=== PATIENT | female | born 1955 | race Caucasian/White ===

== ENCOUNTER 2018-08-06 16:07 | Inpatient (IN) | payer SELFPAY ==
[~2018-08-06] VITALS: Ht 153 cm; Wt 61.2 kg
[2018-08-06] MEDS ORDERED: ONDANSETRON HCL 4MG/2ML INJ IV STA (17:25)
[2018-08-06] MEDS ORDERED: MORPHINE SULFATE 4 MG/ML CPJ (NOT FOR IM USE) IV STA (17:25)
[2018-08-06] MEDS ORDERED: SODIUM CHLORIDE 0.9% 1000ML BAG (SEPSIS BOLUS) IV ONE (17:30)
[2018-08-06] MEDS ORDERED: PIPERACILLIN/TAZ 3.375G PREMIX 50 ML IV ONE (17:30)
[2018-08-06] MEDS ORDERED: VANCOMYCIN 1 G PREMIX 200 ML IV ONE (17:30)
[2018-08-06 18:05] LABS: CLARITY URINE CLEAR (CLEAR); COLOR URINE DARK YELLOW (YELLOW); KETONES URINE NEGATIVE (NEGATIVE); LEUKOCYTE ESTERASE URINE NEGATIVE (NEGATIVE); NITRITE URINE NEGATIVE (NEGATIVE); OCCULT BLOOD URINE TRACE (NEGATIVE); PH URINE 6.5 (4.5-8.0); PROTEIN URINE 3+ (NEGATIVE); SPECIFIC GRAVITY URINE 1.026 (1.005-1.030)
[2018-08-06 18:19] LABS: BASOPHILS % 0.8 % (0.0-2.0); EOSINOPHILS % 0.2 % (0.0-5.0); HEMATOCRIT. 51.8 % (36.0-48.0); HEMOGLOBIN. 17.4 g/dL (12.0-16.0); LYMPHOCYTES % 16.5 % (20.0-50.0); MEAN CORPUSCULAR HEMOGLOBIN 30.1 pg (28.0-32.0); MEAN CORPUSCULAR VOLUME 89.4 fL (81.0-99.0); MEAN PLATELET VOLUME 8.7 fl (7.4-10.4); MONOCYTES % 8.5 % (2.0-8.0); PLATELET 209 x1000/uL (130-400); RED BLOOD CELL COUNT 5.79 mill/uL (4.2-5.4); RED CELL DISTRIBUTION WIDTH 13.5 % (11.6-14.6)
[2018-08-06 18:23] LABS: CHLORIDE 94 mEq/L (98-107); INR 1.2
[2018-08-06] MEDS ORDERED: MORPHINE SULFATE 4 MG/ML CPJ (NOT FOR IM USE) IV ONE (20:30)
[2018-08-06] MEDS ORDERED: ONDANSETRON HCL 4MG/2ML INJ IV PRN (22:00)
[2018-08-06] MEDS ORDERED: ACETAMINOPHEN 650MG SUPP PR PRN (22:00)
[2018-08-06] MEDS ORDERED: IPRATROPIUM/ALBUTEROL 0.5-3(2.5)MG/3ML NEB INH PRN (22:00)
[2018-08-06] MEDS ORDERED: PIPERACILLIN/TAZ 3.375G PREMIX 50 ML IV SCH (22:00)
[2018-08-06] MEDS ORDERED: ACETAMINOPHEN 325MG TABLET PO PRN (22:00)
[2018-08-06] MEDS ORDERED: MAGNESIUM/ALUMINUM HYDROXIDE/SIMETHICONE 30ML UDC PO PRN (22:00)
[2018-08-06] MEDS ORDERED: DOCUSATE SODIUM 100MG CAPSULE PO PRN (22:00)
[2018-08-06] MEDS ORDERED: DIPHENHYDRAMINE 50MG/ML VIAL IV PRN (22:00)
[2018-08-06] MEDS ORDERED: GUAIFENESIN 200MG/10ML SUGAR FREE UDC PO PRN (22:00)
[2018-08-06] MEDS ORDERED: NA PHOS,M-B/NA PHOS,DI-BA ENEMA 118ML PR PRN (22:00)
[2018-08-06] MEDS ORDERED: VANCOMYCIN 1 G PREMIX 200 ML IV SCH (22:00)
[2018-08-06] MEDS ORDERED: ACETAMINOPHEN 650MG/20.3ML UDC GT PRN (22:00)
[2018-08-06] MEDS ORDERED: DEXTROSE 50% WATER 50ML SYRINGE IV PRN (22:15)
[2018-08-06] MEDS ORDERED: INSULIN LISPRO 100 UNITS/ML SUBCUT NR (22:45)
[2018-08-06] MEDS: CLONIDINE 0.1MG TABLET PO PRN (22:51)
[2018-08-07] VITALS: BP 158/82
[2018-08-07] MEDS: PIPERACILLIN/TAZ 3.375G PREMIX 50 ML IV SCH ×3 (02:01→17:47)
[2018-08-07 04:00] VITALS: BP 160/88
[2018-08-07] MEDS: VANCOMYCIN 750 MG PREMIX 150 ML IV SCH ×2 (04:30→19:57)
[2018-08-07] MEDS: BLOOD SUGAR DIAGNOSTIC STRIP TEST SCH ×4 (06:37→20:06)
[2018-08-07 06:48] LABS: BASOPHILS % 0.3 % (0.0-2.0); EOSINOPHILS % 0.3 % (0.0-5.0); HEMATOCRIT. 46.2 % (36.0-48.0); HEMOGLOBIN. 15.5 g/dL (12.0-16.0); MEAN CORPUSCULAR HEMOGLOBIN 30.3 pg (28.0-32.0); MEAN CORPUSCULAR VOLUME 90.5 fL (81.0-99.0); MONOCYTES % 8.1 % (2.0-8.0); NEUTROPHILS % 76.3 % (40.0-76.0); PLATELET 165 x1000/uL (130-400); RED BLOOD CELL COUNT 5.11 mill/uL (4.2-5.4); RED CELL DISTRIBUTION WIDTH 13.5 % (11.6-14.6)
[2018-08-07 06:51] LABS: CHLORIDE 98 mEq/L (98-107)
[2018-08-07 07:09] LABS: LDL CHOLESTEROL 90 mg/dL (5-100)
[2018-08-07 07:11] LABS: HDL CHOLESTEROL 26 mg/dL (40-59)
[2018-08-07 08:23] VITALS: BP 133/76
[2018-08-07] MEDS: INSULIN LISPRO 100 UNITS/ML SUBCUT SCH ×4 (08:32→21:05)
[2018-08-07] MEDS: MORPHINE SULFATE 2 MG/ML CPJ (NOT FOR IM USE) IV PRN (09:15)
[2018-08-07] MEDS: ENOXAPARIN 40MG/0.4ML SYR SUBCUT SCH (09:16)
[2018-08-07 10:28] LABS: *BARBITURATES SCREEN URINE NEGATIVE (NEGATIVE); *BENZODIAZEPINES SCREEN URINE NEGATIVE (NEGATIVE); *COCAINE SCREEN URINE NEGATIVE (NEGATIVE); CANNABINOID URINE SCREEN NEGATIVE (NEGATIVE); METHADONE URINE SCREEN NEGATIVE (NEGATIVE); OPIATES URINE SCREEN NEGATIVE (NEGATIVE); PHENCYCLIDINE URINE SCREEN NEGATIVE (NEGATIVE)
[2018-08-07 10:35] LABS: *AMPHETAMINES SCREEN URINE NEGATIVE (NEGATIVE)
[2018-08-07 11:43] VITALS: BP 129/78
[2018-08-07] MEDS ORDERED: LORAZEPAM 2MG/ML CPJ IV NR (11:45)
[2018-08-07] MEDS ORDERED: IOHEXOL-350 100 ML BOTTLE ONE (14:14)
[2018-08-07 14:49] LABS: *BARBITURATES SCREEN URINE NEGATIVE (NEGATIVE); *BENZODIAZEPINES SCREEN URINE NEGATIVE (NEGATIVE)
[2018-08-07 14:50] LABS: *AMPHETAMINES SCREEN URINE NEGATIVE (NEGATIVE); *COCAINE SCREEN URINE NEGATIVE (NEGATIVE); CANNABINOID URINE SCREEN NEGATIVE (NEGATIVE); METHADONE URINE SCREEN NEGATIVE (NEGATIVE); OPIATES URINE SCREEN PRESUMTIVE POSITIVE (NEGATIVE); PHENCYCLIDINE URINE SCREEN NEGATIVE (NEGATIVE)
[2018-08-07] MEDS: SODIUM CHLORIDE 0.9% INJ 3ML FLUSH IVF SCH (14:56)
[2018-08-07 16:07] VITALS: BP 156/89
[2018-08-07 20:00] VITALS: BP 149/83
[2018-08-07] MEDS: HYDROCODONE/ACETAMINOPHEN 5/325MG TABLET PO PRN (21:03)
[2018-08-07] MEDS ORDERED: FUROSEMIDE 40MG/4ML VIAL IVP NR (22:00)
[2018-08-08] VITALS: BP 116/68
[2018-08-08] MEDS: PIPERACILLIN/TAZ 3.375G PREMIX 50 ML IV SCH ×3 (01:34→19:09)
[2018-08-08] MEDS: MORPHINE SULFATE 2 MG/ML CPJ (NOT FOR IM USE) IV PRN ×3 (03:28→19:09)
[2018-08-08 04:00] VITALS: BP 148/83
[2018-08-08] MEDS: VANCOMYCIN 750 MG PREMIX 150 ML IV SCH ×3 (05:57→23:23)
[2018-08-08] MEDS: BLOOD SUGAR DIAGNOSTIC STRIP TEST SCH ×4 (06:26→21:00)
[2018-08-08 07:45] LABS: CHLORIDE 94 mEq/L (98-107)
[2018-08-08 08:00] VITALS: BP 141/80
[2018-08-08] MEDS: ENOXAPARIN 40MG/0.4ML SYR SUBCUT SCH (08:37)
[2018-08-08] MEDS: INSULIN LISPRO 100 UNITS/ML SUBCUT SCH ×4 (08:50→21:00)
[2018-08-08] MEDS: QUETIAPINE FUMARATE 25MG TABLET PO SCH (11:22)
[2018-08-08] MEDS: HYDROCODONE/ACETAMINOPHEN 5/325MG TABLET PO PRN (11:32)
[2018-08-08] MEDS: CLONIDINE 0.1MG TABLET PO PRN (11:40)
[2018-08-08 12:00] VITALS: BP 170/94
[2018-08-08 16:00] VITALS: BP 155/86
[2018-08-08] MEDS: SODIUM CHLORIDE 0.9% INJ 3ML FLUSH IVF SCH ×2 (17:19→22:00)
[2018-08-08 20:00] VITALS: BP 147/84
[2018-08-09] VITALS: BP 122/86
[2018-08-09] MEDS: PIPERACILLIN/TAZ 3.375G PREMIX 50 ML IV SCH ×3 (02:04→18:08)
[2018-08-09 04:00] VITALS: BP 161/77
[2018-08-09] MEDS: SODIUM CHLORIDE 0.9% INJ 3ML FLUSH IVF SCH ×3 (06:00→22:50)
[2018-08-09] MEDS: VANCOMYCIN 750 MG PREMIX 150 ML IV SCH ×3 (06:03→22:51)
[2018-08-09] MEDS: BLOOD SUGAR DIAGNOSTIC STRIP TEST SCH ×3 (07:50→17:46)
[2018-08-09] MEDS: INSULIN LISPRO 100 UNITS/ML SUBCUT SCH ×4 (07:50→22:49)
[2018-08-09 08:00] VITALS: BP 154/82
[2018-08-09] MEDS: QUETIAPINE FUMARATE 25MG TABLET PO SCH (09:28)
[2018-08-09] MEDS: CLONIDINE 0.1MG TABLET PO PRN ×2 (09:29→22:50)
[2018-08-09 12:00] VITALS: BP 158/97
[2018-08-09 12:36] LABS: CHLORIDE 98 mEq/L (98-107)
[2018-08-09 12:39] LABS: BASOPHILS % 0.3 % (0.0-2.0); EOSINOPHILS % 0.9 % (0.0-5.0); HEMATOCRIT. 45.7 % (36.0-48.0); HEMOGLOBIN. 15.4 g/dL (12.0-16.0); LYMPHOCYTES % 13.9 % (20.0-50.0); MEAN CORPUSCULAR HEMOGLOBIN 30.2 pg (28.0-32.0); MEAN CORPUSCULAR VOLUME 89.6 fL (81.0-99.0); MEAN PLATELET VOLUME 8.6 fl (7.4-10.4); MONOCYTES % 9.4 % (2.0-8.0); NEUTROPHILS % 75.5 % (40.0-76.0); PLATELET 170 x1000/uL (130-400); RED CELL DISTRIBUTION WIDTH 13.3 % (11.6-14.6)
[2018-08-09 20:00] VITALS: BP 178/102
[2018-08-10] VITALS (7 sets, daily range): BP systolic 146–187; BP diastolic 81–113
[2018-08-10] MEDS: PIPERACILLIN/TAZ 3.375G PREMIX 50 ML IV SCH ×2 (03:08→10:00)
[2018-08-10] MEDS: SODIUM CHLORIDE 0.9% INJ 3ML FLUSH IVF SCH ×2 (05:57→14:00)
[2018-08-10] MEDS: VANCOMYCIN 750 MG PREMIX 150 ML IV SCH ×2 (06:00→15:00)
[2018-08-10] MEDS: CLONIDINE 0.1MG TABLET PO PRN (06:19)
[2018-08-10] MEDS: BLOOD SUGAR DIAGNOSTIC STRIP TEST SCH ×3 (07:20→17:20)
[2018-08-10] MEDS: QUETIAPINE FUMARATE 25MG TABLET PO SCH (09:49)
[2018-08-10] MEDS: INSULIN LISPRO 100 UNITS/ML SUBCUT SCH ×3 (09:51→17:50)
[2018-08-10] MEDS ORDERED: IOHEXOL-350 100 ML BOTTLE ONE (15:26)
== END 2018-08-10 17:55 | disposition home or self-care (01) | DRG 197 ==
LOC: ER 16:07 → 6EST 21:02 → EDBEDREQ 21:04 → EDBEDREQSVC 21:04 → EDBEDREQTM 21:04 → ENRESERV 22:13
PROVIDERS: ADMIT Family Medicine; ATTEND Family Medicine
DX: E11.52 Type 2 diabetes mellitus with diabetic peripheral angiopathy with gangrene (principal); E43 Unspecified severe protein-calorie malnutrition; I96 Gangrene, not elsewhere classified; E11.42 Type 2 diabetes mellitus with diabetic polyneuropathy; L03.031 Cellulitis of right toe; E11.9 Type 2 diabetes mellitus without complications; E78.00 Pure hypercholesterolemia, unspecified; I10 Essential (primary) hypertension; F17.200 Nicotine dependence, unspecified, uncomplicated; F41.9 Anxiety disorder, unspecified; J44.9 Chronic obstructive pulmonary disease, unspecified; E78.5 Hyperlipidemia, unspecified; L03.032 Cellulitis of left toe; N39.0 Urinary tract infection, site not specified; R74.0 Nonspecific elevation of levels of transaminase and lactic acid dehydrogenase [LDH]; Z91.19 Patient's noncompliance with other medical treatment and regimen; Z79.2 Long term (current) use of antibiotics; Z68.26 Body mass index [BMI] 26.0-26.9, adult; Z79.899 Other long term (current) drug therapy; Z71.6 Tobacco abuse counseling; Z91.14 Patient's other noncompliance with medication regimen
CPT/HCPCS: 36415; 71045; 73630; 75635; 80048; 80061; 80202; 80305; 82962; 83036; 83605; 84145; 84484; 93005; 93923; 96365; 96366; 96375; 96376; 99291; 99406; C1893; J1650; J1815; J1940; J2060; J2270; J2405; J2543; J3370; J7030; J7040; Q9967

== ENCOUNTER 2018-08-28 11:28 | Inpatient (IN) | payer MEDICARE, MEDICAID ==
[~2018-08-28] VITALS: Ht 154.9 cm; Wt 55.3 kg
[2018-08-28] MEDS ORDERED: MORPHINE SULFATE 4 MG/ML CPJ (NOT FOR IM USE) IV STA (11:37)
[2018-08-28] MEDS ORDERED: ONDANSETRON HCL 4MG/2ML INJ IV STA (11:37)
[2018-08-28] MEDS ORDERED: VANCOMYCIN 1 G PREMIX 200 ML IV ONE (11:45)
[2018-08-28] MEDS ORDERED: SODIUM CHLORIDE 0.9% 1000ML BAG (SEPSIS BOLUS) IV ONE (11:45)
[2018-08-28] MEDS ORDERED: PIPERACILLIN/TAZ 3.375G PREMIX 50 ML IV ONE (11:45)
[2018-08-28 12:40] LABS: BASOPHILS % 0.6 % (0.0-2.0); EOSINOPHILS % 0.4 % (0.0-5.0); HEMATOCRIT. 48.5 % (36.0-48.0); HEMOGLOBIN. 16.3 g/dL (12.0-16.0); LYMPHOCYTES % 19.7 % (20.0-50.0); MEAN CORPUSCULAR HEMOGLOBIN 30.1 pg (28.0-32.0); MEAN CORPUSCULAR VOLUME 89.2 fL (81.0-99.0); MEAN PLATELET VOLUME 8.9 fl (7.4-10.4); MONOCYTES % 7.5 % (2.0-8.0); NEUTROPHILS % 71.8 % (40.0-76.0); PLATELET 242 x1000/uL (130-400); RED BLOOD CELL COUNT 5.43 mill/uL (4.2-5.4); RED CELL DISTRIBUTION WIDTH 14.1 % (11.6-14.6)
[2018-08-28 12:48] LABS: CHLORIDE 102 mEq/L (98-107)
[2018-08-28 12:49] LABS: INR 1.1; PARTIAL THROMBOPLASTIN TIME 26.1 sec (23.4-31.0); PROTHROMBIN TIME 10.9 sec (9.6-11.0)
[2018-08-28] MEDS ORDERED: DEXT 5%/0.45% NACL KCL 20MEQ/L 1,000 ML IV ONE (13:04)
[2018-08-28] MEDS ORDERED: DEXTROSE 50% WATER 50ML SYRINGE IV ONE (13:15)
[2018-08-28] MEDS ORDERED: HYDROCODONE/ACETAMINOPHEN 5/325MG TABLET PO PRN (14:00)
[2018-08-28] MEDS ORDERED: DEXTROSE 50% WATER 50ML SYRINGE IV PRN (14:00)
[2018-08-28] MEDS ORDERED: ONDANSETRON HCL 4MG/2ML INJ IV PRN (14:00)
[2018-08-28] MEDS ORDERED: ACETAMINOPHEN 325MG TABLET PO PRN (14:00)
[2018-08-28] MEDS ORDERED: FUROSEMIDE 40MG/4ML VIAL IVP NR (14:00)
[2018-08-28] MEDS: ENOXAPARIN 40MG/0.4ML SYR SUBCUT SCH (15:54)
[2018-08-28 16:00] VITALS: BP 142/88
[2018-08-28] MEDS ORDERED: LEVOFLOXACIN 500MG PREMIX 100 ML IV SCH (16:00)
[2018-08-28] MEDS: BLOOD SUGAR DIAGNOSTIC STRIP TEST SCH ×2 (16:24→20:34)
[2018-08-28] MEDS ORDERED: VANCOMYCIN 1 G PREMIX 200 ML IV NR (16:30)
[2018-08-28] MEDS: INSULIN LISPRO 100 UNITS/ML SUBCUT SCH ×2 (17:50→20:45)
[2018-08-28 17:55] VITALS: BP 142/88
[2018-08-28 19:15] VITALS: BP 123/66
[2018-08-28] MEDS: AMLODIPINE 5MG TABLET PO SCH (20:45)
[2018-08-28] MEDS: VANCOMYCIN 750 MG PREMIX 150 ML IV SCH (21:18)
[2018-08-28] MEDS: MORPHINE SULFATE 2 MG/ML CPJ (NOT FOR IM USE) IV PRN (22:54)
[2018-08-29] VITALS: BP 124/69
[2018-08-29 04:00] VITALS: BP 126/81
[2018-08-29] MEDS: VANCOMYCIN 750 MG PREMIX 150 ML IV SCH ×2 (05:06→14:28)
[2018-08-29] MEDS: BLOOD SUGAR DIAGNOSTIC STRIP TEST SCH ×4 (06:26→20:59)
[2018-08-29 07:32] LABS: BASOPHILS % 0.6 % (0.0-2.0); EOSINOPHILS % 1.7 % (0.0-5.0); HEMATOCRIT. 45.4 % (36.0-48.0); HEMOGLOBIN. 15.2 g/dL (12.0-16.0); LYMPHOCYTES % 21.5 % (20.0-50.0); MEAN CORPUSCULAR HEMOGLOBIN 29.9 pg (28.0-32.0); MEAN CORPUSCULAR VOLUME 89.4 fL (81.0-99.0); MEAN PLATELET VOLUME 8.9 fl (7.4-10.4); MONOCYTES % 9.2 % (2.0-8.0); PLATELET 191 x1000/uL (130-400); RED BLOOD CELL COUNT 5.08 mill/uL (4.2-5.4); RED CELL DISTRIBUTION WIDTH 14.3 % (11.6-14.6)
[2018-08-29 07:59] VITALS: BP 145/85
[2018-08-29] MEDS: MORPHINE SULFATE 2 MG/ML CPJ (NOT FOR IM USE) IV PRN ×4 (08:22→22:43)
[2018-08-29] MEDS: AMLODIPINE 5MG TABLET PO SCH ×2 (08:22→20:53)
[2018-08-29] MEDS: INSULIN LISPRO 100 UNITS/ML SUBCUT SCH ×4 (08:23→21:00)
[2018-08-29 08:38] LABS: CHLORIDE 98 mEq/L (98-107)
[2018-08-29 11:39] VITALS: BP 127/81
[2018-08-29 15:15] VITALS: BP 120/71
[2018-08-29] MEDS: ENOXAPARIN 40MG/0.4ML SYR SUBCUT SCH (15:29)
[2018-08-29] MEDS: LEVOFLOXACIN 500MG PREMIX 100 ML IV SCH (16:32)
[2018-08-29 20:00] VITALS: BP 122/70
[2018-08-29] MEDS: INSULIN GLARGINE UD 100 UNITS/ML SYR SUBCUT SCH (22:00)
[2018-08-29] MEDS: VANCOMYCIN 1 G PREMIX 200 ML IV SCH (22:42)
[2018-08-30] VITALS (11 sets, daily range): BP systolic 109–144; BP diastolic 60–89
[2018-08-30] MEDS: VANCOMYCIN 1 G PREMIX 200 ML IV SCH ×3 (06:11→22:00)
[2018-08-30] MEDS: BLOOD SUGAR DIAGNOSTIC STRIP TEST SCH ×4 (06:24→20:53)
[2018-08-30] MEDS: INSULIN LISPRO 100 UNITS/ML SUBCUT SCH ×4 (07:50→20:52)
[2018-08-30] MEDS ORDERED: HEPARIN SODIUM 1,000 UNIT/1ML VIAL IV ONE (08:48)
[2018-08-30] MEDS: AMLODIPINE 5MG TABLET PO SCH ×2 (08:51→20:56)
[2018-08-30 09:14] LABS: BASOPHILS % 0.4 % (0.0-2.0); EOSINOPHILS % 1.3 % (0.0-5.0); HEMATOCRIT. 45.3 % (36.0-48.0); HEMOGLOBIN. 14.9 g/dL (12.0-16.0); LYMPHOCYTES % 19.8 % (20.0-50.0); MEAN CORPUSCULAR HEMOGLOBIN 29.9 pg (28.0-32.0); MEAN CORPUSCULAR VOLUME 90.7 fL (81.0-99.0); MEAN PLATELET VOLUME 8.7 fl (7.4-10.4); MONOCYTES % 8.3 % (2.0-8.0); NEUTROPHILS % 70.2 % (40.0-76.0); PLATELET 199 x1000/uL (130-400); RED CELL DISTRIBUTION WIDTH 14.3 % (11.6-14.6)
[2018-08-30 09:22] LABS: CHLORIDE 96 mEq/L (98-107)
[2018-08-30] MEDS: INSULIN GLARGINE UD 100 UNITS/ML SYR SUBCUT SCH (10:43)
[2018-08-30] MEDS ORDERED: LIDOCAINE HCL 1% 20ML VIAL (Pyxis) INJ ONE (11:38)
[2018-08-30] MEDS ORDERED: IOHEXOL-300 100 ML BOTTLE ONE ×2 (11:38→12:37)
[2018-08-30] MEDS ORDERED: MIDAZOLAM HCL 2 MG/2 ML VIAL ONE ×2 (11:52→12:31)
[2018-08-30] MEDS ORDERED: FENTANYL CITRATE/PF 50MCG/ML 2ML VIAL ONE ×2 (11:53→12:44)
[2018-08-30] MEDS: CLOPIDOGREL 75MG TABLET PO NR ×2 (13:45→15:25)
[2018-08-30] MEDS: ENOXAPARIN 40MG/0.4ML SYR SUBCUT SCH (15:00)
[2018-08-30] MEDS: LEVOFLOXACIN 500MG PREMIX 100 ML IV SCH (15:26)
[2018-08-30] MEDS: MORPHINE SULFATE 2 MG/ML CPJ (NOT FOR IM USE) IV PRN ×3 (18:48→23:29)
[2018-08-31] VITALS (9 sets, daily range): BP systolic 110–136; BP diastolic 64–84
[2018-08-31] MEDS: MORPHINE SULFATE 2 MG/ML CPJ (NOT FOR IM USE) IV PRN ×3 (05:54→21:59)
[2018-08-31] MEDS: INSULIN GLARGINE UD 100 UNITS/ML SYR SUBCUT SCH ×3 (05:59→21:59)
[2018-08-31] MEDS: VANCOMYCIN 1 G PREMIX 200 ML IV SCH (06:06)
[2018-08-31 06:19] LABS: BASOPHILS % 0.5 % (0.0-2.0); EOSINOPHILS % 1.8 % (0.0-5.0); HEMATOCRIT. 44.5 % (36.0-48.0); HEMOGLOBIN. 14.6 g/dL (12.0-16.0); LYMPHOCYTES % 27.1 % (20.0-50.0); MEAN CORPUSCULAR HEMOGLOBIN 29.7 pg (28.0-32.0); MEAN CORPUSCULAR VOLUME 90.4 fL (81.0-99.0); MEAN PLATELET VOLUME 8.9 fl (7.4-10.4); MONOCYTES % 10.2 % (2.0-8.0); NEUTROPHILS % 60.4 % (40.0-76.0); PLATELET 164 x1000/uL (130-400); RED BLOOD CELL COUNT 4.92 mill/uL (4.2-5.4); RED CELL DISTRIBUTION WIDTH 14.1 % (11.6-14.6)
[2018-08-31 06:24] LABS: CHLORIDE 99 mEq/L (98-107)
[2018-08-31 06:41] LABS: VANCOMYCIN TROUGH 20.9 ug/mL (5.0-10.0)
[2018-08-31] MEDS: BLOOD SUGAR DIAGNOSTIC STRIP TEST SCH ×4 (07:16→20:40)
[2018-08-31] MEDS: INSULIN LISPRO 100 UNITS/ML SUBCUT SCH ×4 (07:16→22:01)
[2018-08-31] MEDS: AMLODIPINE 5MG TABLET PO SCH ×2 (09:03→20:39)
[2018-08-31] MEDS: LEVOFLOXACIN 500MG PREMIX 100 ML IV SCH (15:55)
[2018-08-31] MEDS: VANCOMYCIN 750 MG PREMIX 150 ML IV SCH ×2 (15:55→23:31)
[2018-08-31] MEDS: ENOXAPARIN 40MG/0.4ML SYR SUBCUT SCH (15:55)
[2018-09-01] VITALS (13 sets, daily range): BP systolic 116–145; BP diastolic 45–89
[2018-09-01] MEDS: MORPHINE SULFATE 2 MG/ML CPJ (NOT FOR IM USE) IV PRN ×4 (03:19→21:26)
[2018-09-01] MEDS: BLOOD SUGAR DIAGNOSTIC STRIP TEST SCH ×4 (05:41→21:11)
[2018-09-01] MEDS: INSULIN LISPRO 100 UNITS/ML SUBCUT SCH ×4 (05:41→21:00)
[2018-09-01 06:22] LABS: BASOPHILS % 0.4 % (0.0-2.0); EOSINOPHILS % 1.3 % (0.0-5.0); HEMATOCRIT. 42.9 % (36.0-48.0); HEMOGLOBIN. 14.5 g/dL (12.0-16.0); LYMPHOCYTES % 26.5 % (20.0-50.0); MEAN CORPUSCULAR HEMOGLOBIN 30.1 pg (28.0-32.0); MEAN CORPUSCULAR VOLUME 89.1 fL (81.0-99.0); MEAN PLATELET VOLUME 8.6 fl (7.4-10.4); MONOCYTES % 10.4 % (2.0-8.0); NEUTROPHILS % 61.4 % (40.0-76.0); PLATELET 177 x1000/uL (130-400); RED BLOOD CELL COUNT 4.81 mill/uL (4.2-5.4)
[2018-09-01 06:33] LABS: CHLORIDE 98 mEq/L (98-107)
[2018-09-01] MEDS: AMLODIPINE 5MG TABLET PO SCH ×2 (08:51→21:10)
[2018-09-01] MEDS: VANCOMYCIN 750 MG PREMIX 150 ML IV SCH ×2 (08:52→16:53)
[2018-09-01] MEDS: INSULIN GLARGINE UD 100 UNITS/ML SYR SUBCUT SCH ×2 (11:07→21:11)
[2018-09-01] MEDS: LEVOFLOXACIN 500MG PREMIX 100 ML IV SCH (15:45)
[2018-09-01] MEDS: DIPHENHYDRAMINE 50MG CAPSULE PO PRN (21:10)
[2018-09-02] VITALS (19 sets, daily range): BP systolic 52–139; BP diastolic 22–87
[2018-09-02] MEDS: VANCOMYCIN 750 MG PREMIX 150 ML IV SCH ×3 (00:36→20:09)
[2018-09-02 06:19] LABS: BASOPHILS % 0.5 % (0.0-2.0); EOSINOPHILS % 1.8 % (0.0-5.0); HEMATOCRIT. 43.2 % (36.0-48.0); HEMOGLOBIN. 14.8 g/dL (12.0-16.0); LYMPHOCYTES % 25.4 % (20.0-50.0); MEAN CORPUSCULAR HEMOGLOBIN 30.3 pg (28.0-32.0); MEAN CORPUSCULAR VOLUME 88.8 fL (81.0-99.0); MEAN PLATELET VOLUME 8.4 fl (7.4-10.4); MONOCYTES % 11.8 % (2.0-8.0); NEUTROPHILS % 60.5 % (40.0-76.0); PLATELET 179 x1000/uL (130-400); RED BLOOD CELL COUNT 4.87 mill/uL (4.2-5.4); RED CELL DISTRIBUTION WIDTH 13.8 % (11.6-14.6)
[2018-09-02 06:20] LABS: CHLORIDE 100 mEq/L (98-107)
[2018-09-02] MEDS: BLOOD SUGAR DIAGNOSTIC STRIP TEST SCH ×4 (06:27→21:27)
[2018-09-02] MEDS: INSULIN LISPRO 100 UNITS/ML SUBCUT SCH ×4 (06:27→21:21)
[2018-09-02] MEDS ORDERED: LIDOCAINE HCL 1% 20ML VIAL (Pyxis) INJ ONE (06:40)
[2018-09-02] MEDS ORDERED: BUPIVACAINE HCL/PF 0.25% (2.5MG/ML) 10ML ONE (06:40)
[2018-09-02] MEDS ORDERED: NORMAL SALINE 0.9% 10 ML SYR ONE (06:41)
[2018-09-02] MEDS ORDERED: BACITRACIN 50,000 UNITS/VIAL ONE (06:41)
[2018-09-02] MEDS ORDERED: ROPIVACAINE HCL 10MG/ML 20 ML VIAL EPI ONE (06:57)
[2018-09-02] MEDS ORDERED: FENTANYL CITRATE/PF 50MCG/ML 2ML VIAL ONE (07:05)
[2018-09-02] MEDS ORDERED: ONDANSETRON HCL 4MG/2ML INJ ONE (07:05)
[2018-09-02] MEDS ORDERED: METOCLOPRAMIDE HCL 10MG/2ML VIAL ONE (07:05)
[2018-09-02] MEDS ORDERED: MIDAZOLAM HCL 2 MG/2 ML VIAL ONE ×2 (07:05→07:10)
[2018-09-02] MEDS ORDERED: SUCCINYLCHOLINE CHLORIDE 200MG/10ML IV ONE (07:05)
[2018-09-02] MEDS ORDERED: LIDOCAINE HCL/PF 1% 10 MG/ML 5ML VIAL ONE (07:05)
[2018-09-02] MEDS ORDERED: PROPOFOL 200MG/20ML VIAL IV ONE (07:05)
[2018-09-02] MEDS ORDERED: GLYCOPYRROLATE 0.2 MG/ML 2ML VIAL ONE (07:05)
[2018-09-02] MEDS ORDERED: ALBUMIN HUMAN 12.5G/250ML (5%) IV ONE (08:17)
[2018-09-02] MEDS: AMLODIPINE 5MG TABLET PO SCH ×2 (09:00→21:00)
[2018-09-02] MEDS: INSULIN GLARGINE UD 100 UNITS/ML SYR SUBCUT SCH ×2 (10:00→21:21)
[2018-09-02] MEDS: LEVOFLOXACIN 500MG PREMIX 100 ML IV SCH (15:24)
[2018-09-02] MEDS: DIPHENHYDRAMINE 50MG CAPSULE PO PRN (21:22)
[2018-09-02] MEDS: HYDROCODONE/ACETAMINOPHEN 5/325MG TABLET PO PRN (22:24)
[2018-09-03] VITALS (18 sets, daily range): BP systolic 122–156; BP diastolic 56–103
[2018-09-03] MEDS: MORPHINE SULFATE 2 MG/ML CPJ (NOT FOR IM USE) IV PRN ×3 (00:39→18:13)
[2018-09-03] MEDS: VANCOMYCIN 750 MG PREMIX 150 ML IV SCH ×3 (03:45→21:45)
[2018-09-03] MEDS: HYDROCODONE/ACETAMINOPHEN 5/325MG TABLET PO PRN ×3 (03:46→13:18)
[2018-09-03 05:43] LABS: BASOPHILS % 0.4 % (0.0-2.0); EOSINOPHILS % 0.3 % (0.0-5.0); HEMATOCRIT. 41.3 % (36.0-48.0); HEMOGLOBIN. 13.8 g/dL (12.0-16.0); LYMPHOCYTES % 17.7 % (20.0-50.0); MEAN CORPUSCULAR HEMOGLOBIN 30.1 pg (28.0-32.0); MONOCYTES % 12.7 % (2.0-8.0); NEUTROPHILS % 68.9 % (40.0-76.0); RED BLOOD CELL COUNT 4.59 mill/uL (4.2-5.4)
[2018-09-03 05:46] LABS: CHLORIDE 96 mEq/L (98-107)
[2018-09-03] MEDS: BLOOD SUGAR DIAGNOSTIC STRIP TEST SCH ×4 (06:09→21:52)
[2018-09-03] MEDS: INSULIN LISPRO 100 UNITS/ML SUBCUT SCH ×4 (06:09→21:58)
[2018-09-03] MEDS: AMLODIPINE 5MG TABLET PO SCH ×2 (08:33→21:59)
[2018-09-03 10:00] LABS: MEAN PLATELET VOLUME 9.7 fl (7.4-10.4); PLATELET 179 x1000/uL (130-400)
[2018-09-03] MEDS: INSULIN GLARGINE UD 100 UNITS/ML SYR SUBCUT SCH ×2 (10:52→22:07)
[2018-09-03] MEDS ORDERED: FUROSEMIDE 20MG/2ML VIAL IVP SCH (11:00)
[2018-09-03] MEDS: LEVOFLOXACIN 500MG PREMIX 100 ML IV SCH (17:42)
[2018-09-04] VITALS: BP 119/62
[2018-09-04] MEDS: MORPHINE SULFATE 2 MG/ML CPJ (NOT FOR IM USE) IV PRN ×3 (00:18→19:29)
[2018-09-04 04:00] VITALS: BP 135/66
[2018-09-04] MEDS: VANCOMYCIN 750 MG PREMIX 150 ML IV SCH ×3 (04:33→22:16)
[2018-09-04] MEDS: BLOOD SUGAR DIAGNOSTIC STRIP TEST SCH ×4 (06:36→21:46)
[2018-09-04] MEDS: INSULIN LISPRO 100 UNITS/ML SUBCUT SCH ×4 (06:39→21:42)
[2018-09-04 07:07] LABS: BASOPHILS % 0.3 % (0.0-2.0); EOSINOPHILS % 0.3 % (0.0-5.0); HEMOGLOBIN. 13.7 g/dL (12.0-16.0); LYMPHOCYTES % 15.1 % (20.0-50.0); MEAN CORPUSCULAR HEMOGLOBIN 29.9 pg (28.0-32.0); MEAN CORPUSCULAR VOLUME 89.3 fL (81.0-99.0); MEAN PLATELET VOLUME 8.8 fl (7.4-10.4); MONOCYTES % 10.3 % (2.0-8.0); PLATELET 196 x1000/uL (130-400); RED BLOOD CELL COUNT 4.59 mill/uL (4.2-5.4); RED CELL DISTRIBUTION WIDTH 13.5 % (11.6-14.6)
[2018-09-04 07:16] LABS: CHLORIDE 94 mEq/L (98-107)
[2018-09-04 08:00] VITALS: BP 144/80
[2018-09-04] MEDS: AMLODIPINE 5MG TABLET PO SCH ×2 (09:28→21:38)
[2018-09-04] MEDS: INSULIN GLARGINE UD 100 UNITS/ML SYR SUBCUT SCH ×2 (09:54→21:44)
[2018-09-04] MEDS ORDERED: FUROSEMIDE 40MG/4ML VIAL IVP SCH (11:00)
[2018-09-04] MEDS ORDERED: SORBITOL 70% SOLN 30ML PO SCH (11:15)
[2018-09-04 12:00] VITALS: BP 144/79
[2018-09-04] MEDS: LEVOFLOXACIN 500MG PREMIX 100 ML IV SCH (15:57)
[2018-09-04 16:00] VITALS: BP 138/73
[2018-09-04 21:17] VITALS: BP 137/77
[2018-09-05] VITALS: BP 121/59
[2018-09-05] MEDS: MORPHINE SULFATE 2 MG/ML CPJ (NOT FOR IM USE) IV PRN ×3 (00:11→20:08)
[2018-09-05 04:00] VITALS: BP 144/81
[2018-09-05] MEDS: VANCOMYCIN 750 MG PREMIX 150 ML IV SCH ×3 (04:33→21:17)
[2018-09-05] MEDS: BLOOD SUGAR DIAGNOSTIC STRIP TEST SCH ×4 (06:38→21:11)
[2018-09-05] MEDS: INSULIN LISPRO 100 UNITS/ML SUBCUT SCH ×4 (07:09→21:11)
[2018-09-05 07:43] LABS: CHLORIDE 93 mEq/L (98-107)
[2018-09-05 07:43] LABS: BASOPHILS % 0.3 % (0.0-2.0); EOSINOPHILS % 0.8 % (0.0-5.0); HEMATOCRIT. 43.2 % (36.0-48.0); HEMOGLOBIN. 14.5 g/dL (12.0-16.0); LYMPHOCYTES % 19.6 % (20.0-50.0); MEAN CORPUSCULAR HEMOGLOBIN 29.8 pg (28.0-32.0); MEAN CORPUSCULAR VOLUME 89.1 fL (81.0-99.0); MEAN PLATELET VOLUME 8.9 fl (7.4-10.4); MONOCYTES % 9.7 % (2.0-8.0); NEUTROPHILS % 69.6 % (40.0-76.0); PLATELET 213 x1000/uL (130-400); RED BLOOD CELL COUNT 4.86 mill/uL (4.2-5.4); RED CELL DISTRIBUTION WIDTH 13.9 % (11.6-14.6)
[2018-09-05 08:00] VITALS: BP 128/67
[2018-09-05] MEDS: AMLODIPINE 5MG TABLET PO SCH ×2 (09:03→21:10)
[2018-09-05] MEDS: INSULIN GLARGINE UD 100 UNITS/ML SYR SUBCUT SCH ×2 (09:05→21:11)
[2018-09-05] MEDS ORDERED: POTASSIUM CHLORIDE 20MEQ TABLET SR PO SCH (11:00)
[2018-09-05 12:00] VITALS: BP 137/70
[2018-09-05 16:00] VITALS: BP 119/65
[2018-09-05] MEDS: LEVOFLOXACIN 500MG PREMIX 100 ML IV SCH (18:35)
[2018-09-05 20:00] VITALS: BP 156/83
[2018-09-05] MEDS: HYDROCODONE/ACETAMINOPHEN 5/325MG TABLET PO PRN (22:06)
[2018-09-05] MEDS: DIPHENHYDRAMINE 50MG CAPSULE PO PRN (22:06)
[2018-09-06] VITALS: BP 141/76
[2018-09-06] MEDS: MORPHINE SULFATE 2 MG/ML CPJ (NOT FOR IM USE) IV PRN ×3 (00:37→14:10)
[2018-09-06 04:00] VITALS: BP 131/76
[2018-09-06] MEDS: VANCOMYCIN 750 MG PREMIX 150 ML IV SCH ×2 (04:08→12:00)
[2018-09-06 06:46] LABS: BASOPHILS % 0.5 % (0.0-2.0); EOSINOPHILS % 2.2 % (0.0-5.0); LYMPHOCYTES % 27.7 % (20.0-50.0); MEAN CORPUSCULAR HEMOGLOBIN 30.5 pg (28.0-32.0); MEAN CORPUSCULAR VOLUME 89.3 fL (81.0-99.0); MEAN PLATELET VOLUME 8.6 fl (7.4-10.4); MONOCYTES % 11.9 % (2.0-8.0); NEUTROPHILS % 57.7 % (40.0-76.0); PLATELET 230 x1000/uL (130-400); RED BLOOD CELL COUNT 4.59 mill/uL (4.2-5.4); RED CELL DISTRIBUTION WIDTH 13.3 % (11.6-14.6)
[2018-09-06] MEDS: BLOOD SUGAR DIAGNOSTIC STRIP TEST SCH ×2 (06:52→11:45)
[2018-09-06 06:53] LABS: CHLORIDE 99 mEq/L (98-107)
[2018-09-06] MEDS: INSULIN LISPRO 100 UNITS/ML SUBCUT SCH ×2 (06:53→12:15)
[2018-09-06 08:00] VITALS: BP 128/77
[2018-09-06 08:21] VITALS: BP 128/77
[2018-09-06] MEDS: AMLODIPINE 5MG TABLET PO SCH (08:55)
[2018-09-06 10:35] VITALS: BP 128/77
[2018-09-06] MEDS: INSULIN GLARGINE UD 100 UNITS/ML SYR SUBCUT SCH (11:17)
[2018-09-06] MEDS: HYDROCODONE/ACETAMINOPHEN 5/325MG TABLET PO PRN (12:55)
[2018-09-06] MEDS: DIPHENHYDRAMINE 50MG CAPSULE PO PRN (14:04)
[2018-09-06 14:10] VITALS: BP 128/77
== END 2018-09-06 15:14 | DRG 853 ==
LOC: ER 11:28 → 6EST 11:48 → EDBEDREQTM 11:56 → ENRESERV 13:33 → 3WST 08-30 14:20 → MICUSO 09-02 09:50 → 5WST 09-03 15:07
PROVIDERS: ADMIT Internal Medicine; ATTEND Internal Medicine
PROC: 04CK3ZZ Extirpation of Matter from Right Femoral Artery, Percutaneous Approach (ICD-10-PCS; principal; 2018-08-30)
PROC: 047M3ZZ Dilation of Right Popliteal Artery, Percutaneous Approach (ICD-10-PCS; 2018-08-30)
PROC: 047R3ZZ Dilation of Right Posterior Tibial Artery, Percutaneous Approach (ICD-10-PCS; 2018-08-30)
PROC: 047P3ZZ Dilation of Right Anterior Tibial Artery, Percutaneous Approach (ICD-10-PCS; 2018-08-30)
PROC: 047K341 Dilation of Right Femoral Artery with Drug-eluting Intraluminal Device, using Drug-Coated Balloon, Percutaneous Approach (ICD-10-PCS; 2018-08-30)
PROC: B41F1ZZ Fluoroscopy of Right Lower Extremity Arteries using Low Osmolar Contrast (ICD-10-PCS; 2018-08-30)
PROC: B41G1ZZ Fluoroscopy of Left Lower Extremity Arteries using Low Osmolar Contrast (ICD-10-PCS; 2018-08-30)
PROC: 0Y6M0Z9 Detachment at Right Foot, Partial 1st Ray, Open Approach (ICD-10-PCS; 2018-09-02)
PROC: 0Y6M0ZB Detachment at Right Foot, Partial 2nd Ray, Open Approach (ICD-10-PCS; 2018-09-02)
PROC: 0Y6M0ZC Detachment at Right Foot, Partial 3rd Ray, Open Approach (ICD-10-PCS; 2018-09-02)
PROC: 0Y6M0ZD Detachment at Right Foot, Partial 4th Ray, Open Approach (ICD-10-PCS; 2018-09-02)
PROC: 0Y6M0ZF Detachment at Right Foot, Partial 5th Ray, Open Approach (ICD-10-PCS; 2018-09-02)
DX: A41.9 Sepsis, unspecified organism (principal); J96.00 Acute respiratory failure, unspecified whether with hypoxia or hypercapnia; I50.43 Acute on chronic combined systolic (congestive) and diastolic (congestive) heart failure; E11.52 Type 2 diabetes mellitus with diabetic peripheral angiopathy with gangrene; E44.0 Moderate protein-calorie malnutrition; I42.9 Cardiomyopathy, unspecified; L03.115 Cellulitis of right lower limb; I31.3 Pericardial effusion (noninflammatory); I96 Gangrene, not elsewhere classified; E11.65 Type 2 diabetes mellitus with hyperglycemia; E11.42 Type 2 diabetes mellitus with diabetic polyneuropathy; E11.649 Type 2 diabetes mellitus with hypoglycemia without coma; I11.0 Hypertensive heart disease with heart failure; I35.0 Nonrheumatic aortic (valve) stenosis; F17.210 Nicotine dependence, cigarettes, uncomplicated; B87.9 Myiasis, unspecified; E78.00 Pure hypercholesterolemia, unspecified; E78.5 Hyperlipidemia, unspecified; R74.0 Nonspecific elevation of levels of transaminase and lactic acid dehydrogenase [LDH]; E86.0 Dehydration; F41.9 Anxiety disorder, unspecified; I95.89 Other hypotension; Z79.4 Long term (current) use of insulin; Z91.14 Patient's other noncompliance with medication regimen; Z81.8 Family history of other mental and behavioral disorders; Z88.0 Allergy status to penicillin; Z91.19 Patient's noncompliance with other medical treatment and regimen; Z68.23 Body mass index [BMI] 23.0-23.9, adult
CPT/HCPCS: 36415; 37227; 37228; 37232; 71045; 73620; 73630; 75710; 80048; 80202; 82962; 83605; 83880; 84145; 85347; 85651; 86140; 87070; 87075; 87077; 87186; 88300; 88305; 88311; 93005; 93306; 93923; 96365; 96367; 96375; 99285; C1725; C1760; C1769; C1876; C1885; C1887; C1893; C1894; C2623; J0330; J1644; J1650; J1815; J1940; J1956; J2250; J2270; J2405; J2543; J2704; J2765; J2795; J3010; J3370; J3490; J7030; J7040; J7050; P9041; Q0163; Q9967

== ENCOUNTER 2018-12-07 20:49 | Inpatient (IN) | payer MEDICARE, MEDICAID ==
[~2018-12-07] VITALS: Ht 154.9 cm; Wt 63.0 kg
[2018-12-07] MEDS ORDERED: KETOROLAC 30MG/ML VIAL IV STA (23:51)
[2018-12-07] MEDS ORDERED: ONDANSETRON HCL 4MG/2ML INJ IV STA (23:51)
[2018-12-07] MEDS ORDERED: SODIUM CHLORIDE 0.9% 1,000 ML IV ONE (23:51)
[2018-12-07] MEDS ORDERED: MORPHINE SULFATE 4 MG/ML CPJ (NOT FOR IM USE) IV STA (23:51)
[2018-12-08] MEDS ORDERED: VANCOMYCIN 1 G PREMIX 200 ML IV ONE
[2018-12-08] MEDS ORDERED: LEVOFLOXACIN 750MG PREMIX 150 ML IV ONE
[2018-12-08 00:15] LABS: BASOPHILS % 0.5 % (0.0-2.0); EOSINOPHILS % 0.5 % (0.0-5.0); HEMATOCRIT. 41.2 % (36.0-48.0); MEAN CORPUSCULAR HEMOGLOBIN 29.5 pg (28.0-32.0); MEAN CORPUSCULAR VOLUME 86.8 fL (81.0-99.0); MEAN PLATELET VOLUME 8.4 fl (7.4-10.4); MONOCYTES % 8.1 % (2.0-8.0); NEUTROPHILS % 62.9 % (40.0-76.0); PLATELET 274 x1000/uL (130-400); RED BLOOD CELL COUNT 4.74 mill/uL (4.2-5.4); RED CELL DISTRIBUTION WIDTH 13.1 % (11.6-14.6)
[2018-12-08 00:18] LABS: CHLORIDE 100 mEq/L (98-107)
[2018-12-08 00:20] LABS: PROTHROMBIN TIME 10.2 sec (9.6-11.0)
[2018-12-08 03:22] LABS: CLARITY URINE TURBID (CLEAR); COLOR URINE YELLOW (YELLOW); KETONES URINE NEGATIVE (NEGATIVE); LEUKOCYTE ESTERASE URINE 2+ (NEGATIVE); NITRITE URINE NEGATIVE (NEGATIVE); OCCULT BLOOD URINE 1+ (NEGATIVE); PROTEIN URINE NEGATIVE (NEGATIVE); SPECIFIC GRAVITY URINE 1.017 (1.005-1.030)
[2018-12-08] MEDS ORDERED: GUAIFENESIN 200MG/10ML SUGAR FREE UDC PO PRN (04:15)
[2018-12-08] MEDS ORDERED: MAGNESIUM/ALUMINUM HYDROXIDE/SIMETHICONE 30ML UDC PO PRN (04:15)
[2018-12-08] MEDS ORDERED: DEXTROSE 50% WATER 50ML SYRINGE IV PRN (04:15)
[2018-12-08] MEDS ORDERED: IPRATROPIUM/ALBUTEROL 0.5-3(2.5)MG/3ML NEB NEB PRN (04:15)
[2018-12-08] MEDS ORDERED: NITROGLYCERIN 0.4MG TABLET SL SL PRN (04:15)
[2018-12-08] MEDS ORDERED: ONDANSETRON HCL 4MG/2ML INJ IV PRN (04:15)
[2018-12-08] MEDS ORDERED: CLONIDINE 0.1MG TABLET PO PRN (04:15)
[2018-12-08] MEDS ORDERED: PIPERACILLIN/TAZ 3.375G PREMIX 50 ML IV NR (04:45)
[2018-12-08 04:48] LABS: LDL CHOLESTEROL 98 mg/dL (5-100)
[2018-12-08 04:49] LABS: HDL CHOLESTEROL 37 mg/dL (40-59)
[2018-12-08 04:50] LABS: CREATINE KINASE 48 IU/L (26-192)
[2018-12-08 04:51] LABS: CREATINE KINASE MB FRACTION 2.5 ng/mL (0.5-3.6)
[2018-12-08 08:30] VITALS: BP 138/83
[2018-12-08] MEDS: ZINC SULFATE 220 MG ( 50 ) CAPSULE PO SCH (10:40)
[2018-12-08] MEDS: ASCORBIC ACID 500 MG TABLET PO SCH ×2 (10:40→21:54)
[2018-12-08] MEDS: FAMOTIDINE 20MG TABLET PO SCH ×2 (10:40→21:54)
[2018-12-08] MEDS: ENOXAPARIN 40MG/0.4ML SYR SUBCUT SCH (10:41)
[2018-12-08] MEDS ORDERED: VANCOMYCIN 750 MG PREMIX 150 ML IV SCH ×3 (10:45→12:00)
[2018-12-08] MEDS: BLOOD SUGAR DIAGNOSTIC STRIP TEST SCH ×3 (11:58→21:00)
[2018-12-08] MEDS ORDERED: PIPERACILLIN/TAZ 3.375G PREMIX 50 ML IV SCH (12:00)
[2018-12-08 12:02] VITALS: BP 132/87
[2018-12-08] MEDS: MORPHINE SULFATE 4 MG/ML CPJ (NOT FOR IM USE) IV PRN ×2 (12:19→17:32)
[2018-12-08] MEDS: INSULIN LISPRO 100 UNITS/ML SUBCUT SCH ×3 (12:23→23:24)
[2018-12-08] MEDS: SODIUM CHLORIDE 0.9% 1,000 ML IV SCH ×2 (12:57→21:53)
[2018-12-08] MEDS: CEFEPIME 1,000 MG in DEXTROSE 5% WATER 50 ML IV SCH (16:02)
[2018-12-08 16:50] VITALS: BP 139/66
[2018-12-08 17:13] LABS: CREATINE KINASE 59 IU/L (26-192); CREATINE KINASE MB FRACTION 2.7 ng/mL (0.5-3.6)
[2018-12-08] MEDS: METRONIDAZOLE 500 MG PREMIX 100 ML IV SCH ×2 (17:24→21:53)
[2018-12-08 20:00] VITALS: BP 142/78
[2018-12-08] MEDS: TRAMADOL 50MG TABLET PO PRN (21:54)
[2018-12-08] MEDS: LORAZEPAM 0.5MG TABLET PO PRN (21:54)
[2018-12-08] MEDS: ZOLPIDEM TARTRATE 5MG TABLET PO PRN (23:20)
[2018-12-09] VITALS: BP 133/61
[2018-12-09 04:00] VITALS: BP 118/57
[2018-12-09] MEDS: CEFEPIME 1,000 MG in DEXTROSE 5% WATER 50 ML IV SCH ×2 (04:51→16:48)
[2018-12-09] MEDS: SODIUM CHLORIDE 0.9% 1,000 ML IV SCH ×2 (05:30→20:49)
[2018-12-09] MEDS: INSULIN LISPRO 100 UNITS/ML SUBCUT SCH ×4 (06:34→21:17)
[2018-12-09] MEDS: BLOOD SUGAR DIAGNOSTIC STRIP TEST SCH ×4 (06:56→20:11)
[2018-12-09 08:00] VITALS: BP 132/64
[2018-12-09] MEDS: METRONIDAZOLE 500 MG PREMIX 100 ML IV SCH ×2 (08:55→18:48)
[2018-12-09] MEDS: ASCORBIC ACID 500 MG TABLET PO SCH ×2 (08:56→20:49)
[2018-12-09] MEDS: FAMOTIDINE 20MG TABLET PO SCH ×2 (08:56→20:49)
[2018-12-09] MEDS: ZINC SULFATE 220 MG ( 50 ) CAPSULE PO SCH (08:56)
[2018-12-09] MEDS: DOCUSATE SODIUM 100MG CAPSULE PO PRN (09:08)
[2018-12-09] MEDS: ENOXAPARIN 40MG/0.4ML SYR SUBCUT SCH (10:46)
[2018-12-09 12:00] VITALS: BP 133/57
[2018-12-09] MEDS ORDERED: VANCOMYCIN 750 MG PREMIX 150 ML IV SCH (15:00)
[2018-12-09 16:00] VITALS: BP 122/59
[2018-12-09] MEDS: TRAMADOL 50MG TABLET PO PRN ×2 (17:23→23:39)
[2018-12-09 20:00] VITALS: BP 147/76
[2018-12-09] MEDS: VANCOMYCIN 750 MG PREMIX 150 ML IV SCH (20:49)
[2018-12-09] MEDS: ZOLPIDEM TARTRATE 5MG TABLET PO PRN (20:49)
[2018-12-09] MEDS: MORPHINE SULFATE 4 MG/ML CPJ (NOT FOR IM USE) IV PRN (21:09)
[2018-12-09] MEDS: LORAZEPAM 0.5MG TABLET PO PRN (21:47)
[2018-12-10] VITALS: BP 150/69
[2018-12-10] MEDS: METRONIDAZOLE 500 MG PREMIX 100 ML IV SCH ×4 (01:21→23:20)
[2018-12-10] MEDS: CEFEPIME 1,000 MG in DEXTROSE 5% WATER 50 ML IV SCH ×2 (03:12→15:15)
[2018-12-10 04:00] VITALS: BP 122/59
[2018-12-10 04:45] LABS: BASOPHILS % 0.5 % (0.0-2.0); EOSINOPHILS % 1.9 % (0.0-5.0); HEMATOCRIT. 39.2 % (36.0-48.0); HEMOGLOBIN. 13.4 g/dL (12.0-16.0); LYMPHOCYTES % 25.7 % (20.0-50.0); MEAN CORPUSCULAR HEMOGLOBIN 29.2 pg (28.0-32.0); MEAN CORPUSCULAR VOLUME 85.8 fL (81.0-99.0); MEAN PLATELET VOLUME 7.9 fl (7.4-10.4); NEUTROPHILS % 61.9 % (40.0-76.0); PLATELET 232 x1000/uL (130-400); RED BLOOD CELL COUNT 4.57 mill/uL (4.2-5.4); RED CELL DISTRIBUTION WIDTH 12.6 % (11.6-14.6)
[2018-12-10 04:46] LABS: CHLORIDE 99 mEq/L (98-107)
[2018-12-10 04:56] LABS: VANCOMYCIN TROUGH 11.7 ug/mL (5.0-10.0)
[2018-12-10] MEDS: VANCOMYCIN 750 MG PREMIX 150 ML IV SCH (04:56)
[2018-12-10] MEDS: INSULIN LISPRO 100 UNITS/ML SUBCUT SCH ×4 (06:00→21:05)
[2018-12-10] MEDS: BLOOD SUGAR DIAGNOSTIC STRIP TEST SCH ×4 (06:00→21:05)
[2018-12-10] MEDS: MORPHINE SULFATE 4 MG/ML CPJ (NOT FOR IM USE) IV PRN ×3 (06:36→20:01)
[2018-12-10 08:00] VITALS: BP 118/53
[2018-12-10] MEDS: DOCUSATE SODIUM 100MG CAPSULE PO PRN (08:03)
[2018-12-10] MEDS: ASCORBIC ACID 500 MG TABLET PO SCH ×2 (08:04→21:03)
[2018-12-10] MEDS: FAMOTIDINE 20MG TABLET PO SCH ×2 (08:04→21:03)
[2018-12-10] MEDS: ZINC SULFATE 220 MG ( 50 ) CAPSULE PO SCH (08:04)
[2018-12-10] MEDS: ENOXAPARIN 40MG/0.4ML SYR SUBCUT SCH (10:34)
[2018-12-10] MEDS: LACTULOSE 20G/30ML UDC PO SCH ×3 (11:17→21:04)
[2018-12-10 12:00] VITALS: BP 146/71
[2018-12-10] MEDS: VANCOMYCIN 1 G PREMIX 200 ML IV SCH ×2 (13:49→21:04)
[2018-12-10 16:00] VITALS: BP 134/65
[2018-12-10 20:00] VITALS: BP 130/63
[2018-12-10] MEDS: SODIUM CHLORIDE 0.9% 1,000 ML IV SCH (20:05)
[2018-12-11] VITALS: BP 146/79
[2018-12-11] MEDS: MORPHINE SULFATE 4 MG/ML CPJ (NOT FOR IM USE) IV PRN ×4 (00:10→21:54)
[2018-12-11] MEDS: CEFEPIME 1,000 MG in DEXTROSE 5% WATER 50 ML IV SCH ×2 (02:47→15:20)
[2018-12-11 04:00] VITALS: BP 142/63
[2018-12-11] MEDS: LACTULOSE 20G/30ML UDC PO SCH ×3 (05:30→21:51)
[2018-12-11] MEDS: VANCOMYCIN 1 G PREMIX 200 ML IV SCH ×3 (05:30→21:51)
[2018-12-11] MEDS: INSULIN LISPRO 100 UNITS/ML SUBCUT SCH ×4 (06:25→21:53)
[2018-12-11] MEDS: BLOOD SUGAR DIAGNOSTIC STRIP TEST SCH ×4 (06:25→21:00)
[2018-12-11 08:00] VITALS: BP 135/65
[2018-12-11] MEDS: ASCORBIC ACID 500 MG TABLET PO SCH ×2 (10:36→21:08)
[2018-12-11] MEDS: ZINC SULFATE 220 MG ( 50 ) CAPSULE PO SCH (10:36)
[2018-12-11] MEDS: METRONIDAZOLE 500 MG PREMIX 100 ML IV SCH ×2 (10:37→17:04)
[2018-12-11] MEDS: FAMOTIDINE 20MG TABLET PO SCH ×2 (10:37→21:08)
[2018-12-11] MEDS ORDERED: LACTULOSE 20G/30ML UDC PO PRN (11:45)
[2018-12-11] MEDS: ENOXAPARIN 40MG/0.4ML SYR SUBCUT SCH (12:04)
[2018-12-11] MEDS: SODIUM CHLORIDE 0.9% 1,000 ML IV SCH (12:05)
[2018-12-11 12:23] VITALS: BP 143/62
[2018-12-11 16:00] VITALS: BP 146/65
[2018-12-11 18:39] LABS: CHLORIDE 99 mEq/L (98-107)
[2018-12-11 18:48] LABS: VANCOMYCIN TROUGH 37.2 ug/mL (5.0-10.0)
[2018-12-11 20:00] VITALS: BP 146/84
[2018-12-12] VITALS: BP 138/70
[2018-12-12] MEDS: METRONIDAZOLE 500 MG PREMIX 100 ML IV SCH ×3 (00:08→16:59)
[2018-12-12] MEDS: ZOLPIDEM TARTRATE 5MG TABLET PO PRN (01:30)
[2018-12-12] MEDS: SODIUM CHLORIDE 0.9% 1,000 ML IV SCH ×2 (02:03→17:17)
[2018-12-12] MEDS: CEFEPIME 1,000 MG in DEXTROSE 5% WATER 50 ML IV SCH ×2 (02:10→15:21)
[2018-12-12] MEDS: MORPHINE SULFATE 4 MG/ML CPJ (NOT FOR IM USE) IV PRN ×5 (02:10→21:24)
[2018-12-12 04:00] VITALS: BP 148/60
[2018-12-12 04:29] LABS: CHLORIDE 100 mEq/L (98-107)
[2018-12-12 04:37] LABS: VANCOMYCIN TROUGH 19.1 ug/mL (5.0-10.0)
[2018-12-12] MEDS: LACTULOSE 20G/30ML UDC PO SCH ×3 (05:29→21:41)
[2018-12-12] MEDS: VANCOMYCIN 1 G PREMIX 200 ML IV SCH ×3 (05:29→21:04)
[2018-12-12] MEDS: BLOOD SUGAR DIAGNOSTIC STRIP TEST SCH ×4 (06:12→21:40)
[2018-12-12] MEDS: INSULIN LISPRO 100 UNITS/ML SUBCUT SCH ×4 (06:17→21:40)
[2018-12-12 08:00] VITALS: BP 124/67
[2018-12-12] MEDS: ASCORBIC ACID 500 MG TABLET PO SCH ×2 (09:13→21:04)
[2018-12-12] MEDS: FAMOTIDINE 20MG TABLET PO SCH ×2 (09:14→21:04)
[2018-12-12] MEDS: ZINC SULFATE 220 MG ( 50 ) CAPSULE PO SCH (09:14)
[2018-12-12] MEDS: ENOXAPARIN 40MG/0.4ML SYR SUBCUT SCH (10:34)
[2018-12-12 12:00] VITALS: BP 122/62
[2018-12-12 16:00] VITALS: BP 147/75
[2018-12-12 20:00] VITALS: BP 134/62
[2018-12-13] VITALS: BP 130/68
[2018-12-13] MEDS: METRONIDAZOLE 500 MG PREMIX 100 ML IV SCH ×3 (00:11→17:12)
[2018-12-13] MEDS: MORPHINE SULFATE 4 MG/ML CPJ (NOT FOR IM USE) IV PRN (01:49)
[2018-12-13] MEDS: CEFEPIME 1,000 MG in DEXTROSE 5% WATER 50 ML IV SCH ×2 (03:25→15:46)
[2018-12-13 04:00] VITALS: BP 130/63
[2018-12-13] MEDS: LACTULOSE 20G/30ML UDC PO SCH ×4 (06:00→21:13)
[2018-12-13] MEDS: VANCOMYCIN 1 G PREMIX 200 ML IV SCH ×3 (06:18→21:13)
[2018-12-13] MEDS: BLOOD SUGAR DIAGNOSTIC STRIP TEST SCH ×4 (06:27→20:46)
[2018-12-13] MEDS: INSULIN LISPRO 100 UNITS/ML SUBCUT SCH ×4 (06:27→21:19)
[2018-12-13 08:00] VITALS: BP 135/62
[2018-12-13] MEDS: ASCORBIC ACID 500 MG TABLET PO SCH ×2 (08:58→20:18)
[2018-12-13] MEDS: FAMOTIDINE 20MG TABLET PO SCH ×2 (08:58→20:18)
[2018-12-13] MEDS: ZINC SULFATE 220 MG ( 50 ) CAPSULE PO SCH (08:58)
[2018-12-13] MEDS: ENOXAPARIN 40MG/0.4ML SYR SUBCUT SCH (11:29)
[2018-12-13] MEDS ORDERED: IOHEXOL-350 100 ML BOTTLE ONE (15:21)
[2018-12-13 16:00] VITALS: BP 138/72
[2018-12-13] MEDS: SODIUM CHLORIDE 0.9% 1,000 ML IV SCH (17:45)
[2018-12-13 20:00] VITALS: BP 161/59
[2018-12-13] MEDS: MORPHINE SULFATE 2 MG/ML CPJ (NOT FOR IM USE) IV PRN (20:21)
[2018-12-13] MEDS: ACETAMINOPHEN 325MG TABLET PO PRN (22:29)
[2018-12-14] VITALS: BP 157/78
[2018-12-14] MEDS: MORPHINE SULFATE 2 MG/ML CPJ (NOT FOR IM USE) IV PRN ×3 (00:46→22:09)
[2018-12-14] MEDS: METRONIDAZOLE 500 MG PREMIX 100 ML IV SCH ×3 (00:47→16:00)
[2018-12-14] MEDS: CEFEPIME 1,000 MG in DEXTROSE 5% WATER 50 ML IV SCH ×2 (03:49→15:00)
[2018-12-14 04:00] VITALS: BP 143/83
[2018-12-14] MEDS: LACTULOSE 20G/30ML UDC PO SCH ×4 (06:00→22:08)
[2018-12-14] MEDS: BLOOD SUGAR DIAGNOSTIC STRIP TEST SCH ×4 (06:41→21:07)
[2018-12-14] MEDS: VANCOMYCIN 1 G PREMIX 200 ML IV SCH ×3 (06:42→22:07)
[2018-12-14] MEDS: INSULIN LISPRO 100 UNITS/ML SUBCUT SCH ×4 (06:54→21:42)
[2018-12-14] MEDS: SODIUM CHLORIDE 0.9% 1,000 ML IV SCH ×2 (07:40→21:00)
[2018-12-14] MEDS: FAMOTIDINE 20MG TABLET PO SCH ×2 (09:42→21:38)
[2018-12-14] MEDS: ASCORBIC ACID 500 MG TABLET PO SCH ×2 (09:42→21:38)
[2018-12-14] MEDS: ZINC SULFATE 220 MG ( 50 ) CAPSULE PO SCH (09:42)
[2018-12-14] MEDS ORDERED: HEPARIN SODIUM 1,000 UNIT/1ML VIAL IV ONE (10:00)
[2018-12-14 12:00] VITALS: BP 139/64
[2018-12-14] MEDS ORDERED: IODIXANOL 320MG/ML 100 ML BOTTLE IV ONE ×2 (14:31→16:53)
[2018-12-14] MEDS ORDERED: FENTANYL CITRATE/PF 50MCG/ML 2ML VIAL ONE ×2 (14:32→17:26)
[2018-12-14] MEDS ORDERED: LIDOCAINE HCL 1% 20ML VIAL (Pyxis) INJ ONE (14:32)
[2018-12-14] MEDS ORDERED: MIDAZOLAM HCL 2 MG/2 ML VIAL ONE (14:32)
[2018-12-14] MEDS: DEXT 5%/0.9% NACL 1,000 ML IV SCH (16:00)
[2018-12-14] MEDS ORDERED: DIPHENHYDRAMINE 50MG/ML VIAL ONE (16:01)
[2018-12-14] MEDS ORDERED: IOHEXOL-300 100 ML BOTTLE ONE (16:35)
[2018-12-14 20:00] VITALS: BP 113/74
[2018-12-15] VITALS: BP 140/68
[2018-12-15] MEDS: METRONIDAZOLE 500 MG PREMIX 100 ML IV SCH ×3 (00:09→16:25)
[2018-12-15] MEDS: CEFEPIME 1,000 MG in DEXTROSE 5% WATER 50 ML IV SCH ×2 (03:06→15:31)
[2018-12-15] MEDS: MORPHINE SULFATE 2 MG/ML CPJ (NOT FOR IM USE) IV PRN ×4 (03:23→22:45)
[2018-12-15 04:00] VITALS: BP 137/65
[2018-12-15] MEDS: DEXT 5%/0.9% NACL 1,000 ML IV SCH (05:20)
[2018-12-15] MEDS: LACTULOSE 20G/30ML UDC PO SCH ×4 (05:49→22:46)
[2018-12-15] MEDS: BLOOD SUGAR DIAGNOSTIC STRIP TEST SCH ×4 (05:49→19:58)
[2018-12-15] MEDS: VANCOMYCIN 1 G PREMIX 200 ML IV SCH ×2 (06:00→13:24)
[2018-12-15] MEDS ORDERED: LIDOCAINE HCL 1% 20ML VIAL (Pyxis) INJ ONE ×2 (06:49→06:58)
[2018-12-15] MEDS ORDERED: BACITRACIN 50,000 UNITS/VIAL ONE ×2 (06:49→07:11)
[2018-12-15] MEDS ORDERED: BUPIVACAINE HCL/PF 0.5% (5MG/ML) 10ML ONE (06:49)
[2018-12-15] MEDS: INSULIN LISPRO 100 UNITS/ML SUBCUT SCH ×4 (06:49→22:55)
[2018-12-15] MEDS ORDERED: PROPOFOL 200MG/20ML VIAL IV ONE (06:57)
[2018-12-15] MEDS ORDERED: FENTANYL CITRATE/PF 50MCG/ML 2ML VIAL ONE (07:19)
[2018-12-15 07:54] LABS: CHLORIDE 97 mEq/L (98-107)
[2018-12-15 08:03] LABS: VANCOMYCIN TROUGH 10.3 ug/mL (5.0-10.0)
[2018-12-15] MEDS ORDERED: ONDANSETRON HCL 4MG/2ML INJ ONE (08:18)
[2018-12-15] MEDS ORDERED: HYDRALAZINE 20MG/ML VIAL IV PRN (09:00)
[2018-12-15] MEDS ORDERED: ONDANSETRON HCL 4MG/2ML INJ IV PRN (09:00)
[2018-12-15] MEDS: HYDROMORPHONE HCL/PF 2MG/ML CPJ IV PRN ×2 (09:22→09:34)
[2018-12-15 11:00] VITALS: BP 157/89
[2018-12-15] MEDS: ZINC SULFATE 220 MG ( 50 ) CAPSULE PO SCH (11:20)
[2018-12-15] MEDS: ASCORBIC ACID 500 MG TABLET PO SCH ×2 (11:20→19:50)
[2018-12-15] MEDS: FAMOTIDINE 20MG TABLET PO SCH ×2 (11:20→19:50)
[2018-12-15] MEDS ORDERED: MORPHINE SULFATE 2 MG/ML CPJ (NOT FOR IM USE) IV PRN (15:30)
[2018-12-15] MEDS ORDERED: TRAMADOL 50MG TABLET PO PRN (15:30)
[2018-12-15] MEDS: DILTIAZEM HCL 60MG TABLET PO SCH ×2 (15:31→22:46)
[2018-12-15 16:00] VITALS: BP 185/82
[2018-12-15] MEDS: ACETAMINOPHEN 325MG TABLET PO PRN (17:26)
[2018-12-15] MEDS: SODIUM CHLORIDE 0.9% 1,000 ML IV SCH (17:29)
[2018-12-15] MEDS: IBUPROFEN 200MG TABLET PO PRN (18:11)
[2018-12-15 20:00] VITALS: BP 133/67
[2018-12-16] VITALS (7 sets, daily range): BP systolic 99–131; BP diastolic 48–80
[2018-12-16] MEDS: SODIUM CHLORIDE 0.9% 1,000 ML IV SCH (00:31)
[2018-12-16] MEDS: VANCOMYCIN 1 G PREMIX 200 ML IV SCH (00:32)
[2018-12-16] MEDS: DILTIAZEM HCL 60MG TABLET PO SCH ×3 (05:42→22:21)
[2018-12-16] MEDS: LACTULOSE 20G/30ML UDC PO SCH ×3 (05:42→22:00)
[2018-12-16] MEDS: INSULIN LISPRO 100 UNITS/ML SUBCUT SCH ×4 (06:23→22:37)
[2018-12-16] MEDS: BLOOD SUGAR DIAGNOSTIC STRIP TEST SCH ×4 (06:23→21:15)
[2018-12-16] MEDS: ASCORBIC ACID 500 MG TABLET PO SCH ×2 (09:02→22:21)
[2018-12-16] MEDS: ZINC SULFATE 220 MG ( 50 ) CAPSULE PO SCH (09:02)
[2018-12-16] MEDS: DEXT 5%/0.9% NACL 1,000 ML IV SCH (09:02)
[2018-12-16] MEDS: FAMOTIDINE 20MG TABLET PO SCH ×2 (09:02→22:21)
[2018-12-16] MEDS ORDERED: CEFAZOLIN 1000MG PREMIX 50 ML IV SCH (13:00)
[2018-12-16] MEDS: ENOXAPARIN 40MG/0.4ML SYR SUBCUT SCH (13:05)
[2018-12-16] MEDS: MORPHINE SULFATE 2 MG/ML CPJ (NOT FOR IM USE) IV PRN (13:09)
[2018-12-16] MEDS: IBUPROFEN 200MG TABLET PO PRN (15:07)
[2018-12-16] MEDS: CEPHALEXIN 250MG CAPSULE PO SCH (22:32)
[2018-12-17] VITALS: BP 130/70
[2018-12-17] MEDS: IBUPROFEN 200MG TABLET PO PRN ×2 (01:08→17:35)
[2018-12-17 04:00] VITALS: BP 147/77
[2018-12-17] MEDS: LACTULOSE 20G/30ML UDC PO SCH ×4 (05:17→21:54)
[2018-12-17] MEDS: DILTIAZEM HCL 60MG TABLET PO SCH ×3 (05:18→21:54)
[2018-12-17] MEDS: CEPHALEXIN 250MG CAPSULE PO SCH ×3 (05:18→21:52)
[2018-12-17] MEDS: BLOOD SUGAR DIAGNOSTIC STRIP TEST SCH ×4 (06:32→20:13)
[2018-12-17] MEDS: INSULIN LISPRO 100 UNITS/ML SUBCUT SCH ×4 (06:37→20:45)
[2018-12-17] MEDS: CLOPIDOGREL 75MG TABLET PO SCH (09:03)
[2018-12-17] MEDS: ASCORBIC ACID 500 MG TABLET PO SCH ×2 (09:03→20:10)
[2018-12-17] MEDS: FAMOTIDINE 20MG TABLET PO SCH ×2 (09:03→20:10)
[2018-12-17] MEDS: ZINC SULFATE 220 MG ( 50 ) CAPSULE PO SCH (09:03)
[2018-12-17] MEDS: ENOXAPARIN 40MG/0.4ML SYR SUBCUT SCH (10:08)
[2018-12-17 12:00] VITALS: BP 135/57
[2018-12-17 16:00] VITALS: BP 141/67
[2018-12-17 20:00] VITALS: BP 150/74
[2018-12-18] VITALS (7 sets, daily range): BP systolic 109–140; BP diastolic 52–90
[2018-12-18] MEDS: LACTULOSE 20G/30ML UDC PO SCH (06:00)
[2018-12-18] MEDS: DILTIAZEM HCL 60MG TABLET PO SCH ×2 (06:26→11:52)
[2018-12-18] MEDS: BLOOD SUGAR DIAGNOSTIC STRIP TEST SCH ×2 (06:27→11:56)
[2018-12-18] MEDS: CEPHALEXIN 250MG CAPSULE PO SCH ×2 (06:27→11:52)
[2018-12-18] MEDS: FAMOTIDINE 20MG TABLET PO SCH (08:40)
[2018-12-18] MEDS: ASCORBIC ACID 500 MG TABLET PO SCH (08:40)
[2018-12-18] MEDS: ZINC SULFATE 220 MG ( 50 ) CAPSULE PO SCH (08:40)
[2018-12-18] MEDS: CLOPIDOGREL 75MG TABLET PO SCH (08:40)
[2018-12-18] MEDS: INSULIN LISPRO 100 UNITS/ML SUBCUT SCH ×2 (08:51→12:01)
[2018-12-18] MEDS: IBUPROFEN 200MG TABLET PO PRN ×2 (08:53→13:16)
[2018-12-18] MEDS: ENOXAPARIN 40MG/0.4ML SYR SUBCUT SCH (11:52)
== END 2018-12-18 13:35 | DRG 853 ==
LOC: ER 20:49 → SUPCPDRO 20:57 → 8WST 12-08 00:41 → EDBEDREQTM 12-08 00:42 → EDBEDREQ 12-08 00:42 → EDBEDREQDT 12-08 00:42 → ENRESERV 12-08 07:08
PROVIDERS: ADMIT Internal Medicine; ATTEND Internal Medicine
PROC: 047L3DZ Dilation of Left Femoral Artery with Intraluminal Device, Percutaneous Approach (ICD-10-PCS; 2018-12-14)
PROC: B41G1ZZ Fluoroscopy of Left Lower Extremity Arteries using Low Osmolar Contrast (ICD-10-PCS; 2018-12-14)
PROC: 0Y6N0Z9 Detachment at Left Foot, Partial 1st Ray, Open Approach (ICD-10-PCS; principal; 2018-12-15)
PROC: 0Y6N0ZB Detachment at Left Foot, Partial 2nd Ray, Open Approach (ICD-10-PCS; 2018-12-15)
PROC: 0Y6N0ZC Detachment at Left Foot, Partial 3rd Ray, Open Approach (ICD-10-PCS; 2018-12-15)
PROC: 0Y6N0ZD Detachment at Left Foot, Partial 4th Ray, Open Approach (ICD-10-PCS; 2018-12-15)
PROC: 0Y6N0ZF Detachment at Left Foot, Partial 5th Ray, Open Approach (ICD-10-PCS; 2018-12-15)
DX: A41.9 Sepsis, unspecified organism (principal); A48.0 Gas gangrene; E11.52 Type 2 diabetes mellitus with diabetic peripheral angiopathy with gangrene; E44.0 Moderate protein-calorie malnutrition; E87.1 Hypo-osmolality and hyponatremia; N39.0 Urinary tract infection, site not specified; L03.116 Cellulitis of left lower limb; M86.8X8 Other osteomyelitis, other site; E11.42 Type 2 diabetes mellitus with diabetic polyneuropathy; E11.65 Type 2 diabetes mellitus with hyperglycemia; I10 Essential (primary) hypertension; E11.69 Type 2 diabetes mellitus with other specified complication; I77.1 Stricture of artery; E78.00 Pure hypercholesterolemia, unspecified; E78.5 Hyperlipidemia, unspecified; F41.9 Anxiety disorder, unspecified; I70.202 Unspecified atherosclerosis of native arteries of extremities, left leg; Z89.431 Acquired absence of right foot; Z88.0 Allergy status to penicillin; Z99.3 Dependence on wheelchair; Z79.4 Long term (current) use of insulin; Z87.891 Personal history of nicotine dependence; Z68.26 Body mass index [BMI] 26.0-26.9, adult
CPT/HCPCS: 36415; 37226; 71045; 73630; 75635; 75710; 80048; 80061; 80202; 81003; 82550; 82553; 82962; 83036; 83605; 84145; 84484; 85347; 87106; 88305; 88311; 93005; 93923; 96365; 99285; C1714; C1725; C1760; C1769; C1876; C1887; C1893; C1894; J0690; J0692; J1170; J1200; J1644; J1650; J1815; J1885; J1956; J2250; J2270; J2405; J2543; J2704; J3010; J3370; J3490; J7030; J7042; J7060; Q9967